=== PATIENT | female | born 1965 | race Caucasian/White ===

== ENCOUNTER → 2016-12-13 | Outpatient (CLI) | payer OTHER ==
[~2016-12-13] MED LIST: ALBU18002 INH
[2016-12-17 04:24] LABS: CHLAMYDIA TRACH RNA*** NOT DETECTED (NOT DETECTED); GC (NEIS GONORRHOEAE)RNA** NOT DETECTED (NOT DETECTED)
== END | disposition home or self-care (01) ==
LOC: C.LABSPEC 13:31
PROVIDERS: ATTEND Physician Assistant
DX: L29.8 Other pruritus (principal); Z11.3 Encounter for screening for infections with a predominantly sexual mode of transmission

== ENCOUNTER → 2017-03-07 | Outpatient (CLI) | payer OTHER ==
[2017-03-07 14:48] LABS: BASO % 0.5 %; BASO ABS # 0.05 K/uL (0-0.2); COMPLETE YES; EOS % 5.1 %; HEMATOCRIT 42.4 % (37-47); IG% 0.1 %; LYMPH % 17.2 %; LYMPH ABS # 1.57 K/uL (1.2-3.4); MEAN PLATELET VOLUME 11.7 fL (7.4-10.4); MONO % 7.7 %; NEUT % 69.4 %; PLATELET COUNT 207 K/uL (130-400); RED BLOOD COUNT 4.82 M/uL (4.2-5.4); WHITE BLOOD COUNT 9.15 K/uL (4.8-10.8)
== END | disposition home or self-care (01) ==
LOC: C.LAB1850 13:29
PROVIDERS: ATTEND Internal Medicine
DX: D72.819 Decreased white blood cell count, unspecified (principal)

== ENCOUNTER → 2017-07-23 | Outpatient (CLI) | payer OTHER | END | disposition home or self-care (01) | LOC: C.LABSPEC 13:27 | PROVIDERS: ATTEND Obstetrics & Gynecology | DX: N76.0 Acute vaginitis (principal) ==

== ENCOUNTER → 2017-10-31 | Outpatient (CLI) | payer OTHER ==
[2017-11-04 14:33] LABS: HERPES SIMPLEX VIRUS CULT NOT ISOLATED (NOT ISOLATED)
== END | disposition home or self-care (01) ==
LOC: C.LABSPEC 17:36
PROVIDERS: ATTEND Physician Assistant
DX: R35.0 Frequency of micturition (principal); N94.9 Unspecified condition associated with female genital organs and menstrual cycle

== ENCOUNTER → 2017-12-05 | Outpatient (CLI) | payer OTHER | END | disposition home or self-care (01) | LOC: C.LABSPEC 17:42 | PROVIDERS: ATTEND Physician Assistant | DX: N89.8 Other specified noninflammatory disorders of vagina (principal) ==

== ENCOUNTER → 2017-12-12 | Outpatient (CLI) | payer OTHER ==
[2017-12-12 09:35] LABS: BASO ABS # 0.06 K/uL (0-0.2); HEMATOCRIT 43.2 % (37-47); HEMOGLOBIN 14.4 g/dL (12.0-16.0); IG# 0.01 K/uL (0.00-0.02); LYMPH % 20.1 %; MEAN CELL VOLUME 86.7 fL (80-100); MEAN CORPUSCULAR HEMOGLOBIN 28.9 pg (25-34); MEAN CORPUSCULAR HGB CONC 33.3 g/dl (32-36); MEAN PLATELET VOLUME 11.1 fL (7.4-10.4); MONO % 7.2 %; MONO ABS # 0.43 K/uL (0.11-0.59); NEUT % 66.5 %; NEUT ABS # 3.96 K/uL (1.4-6.5); PLATELET COUNT 218 K/uL (130-400); RED CELL DISTRIBUTION WIDTH CV 13.9 % (11.5-14.5); WHITE BLOOD COUNT 5.96 K/uL (4.8-10.8)
[2017-12-12 10:09] LABS: ALBUMIN 3.9 gm/dl (3.4-5.0); ALT/SGPT 24 U/L (12-78); AST/SGOT 17 U/L (15-37); BLOOD UREA NITROGEN 15 mg/dl (7-18); CALCIUM 8.8 mg/dl (8.5-10.1); CARBON DIOXIDE 28 mmol/L (21-32); CHOLESTEROL 152 mg/dl (0-200); CREATININE 0.93 mg/dl (0.60-1.20); GLUCOSE 84 mg/dl (70-99); POTASSIUM 4.4 mmol/L (3.5-5.1); SODIUM 138 mmol/L (136-145)
[2017-12-12 10:18] LABS: ALKALINE PHOSPHATASE 96 U/L (45-117); LDL CHOLESTEROL CALCULATED 53 mg/dl; TOTAL PROTEIN 7.7 gm/dl (6.4-8.2)
[2017-12-15 13:46] LABS: QUANTIF MITOGEN-NIL 8.59 IU/ML; QUANTIFERON NEGATIVE (NEGATIVE); QUANTIFERON NIL 0.17 IU/ML
[2017-12-15 15:07] LABS: ANA SCREEN TC 249X POSITIVE (NEGATIVE); ANTI-SS-A <1.0 NEG AI (<1.0 NEG); ANTI-SS-B <1.0 NEG AI (<1.0 NEG); ANTICARDIOLIPID AB IGA <11 APL (< = 11); COMPLEMENT C3 TC 44859W 105 MG/DL (90-180); COMPLEMENT C4 TC 44982E 26 MG/DL (16-47); MICROSOMAL AB 94 IU/ML (<9)
== END | disposition home or self-care (01) ==
LOC: C.LAB1850 08:28
PROVIDERS: ATTEND Internal Medicine
DX: K62.89 Other specified diseases of anus and rectum (principal); R51 Headache; Z13.220 Encounter for screening for lipoid disorders; F41.9 Anxiety disorder, unspecified; R76.8 Other specified abnormal immunological findings in serum; H20.9 Unspecified iridocyclitis

== ENCOUNTER → 2018-03-06 | Day surgery (SDC) | payer OTHER ==
[2018-02-04 10:27] VITALS: Ht 162.6 cm; Wt 77.3 kg
[~2018-03-06] VITALS: Ht 162.6 cm; Wt 77.3 kg
[~2018-03-06] MED LIST changes: +ASTN; +EST1 PO; +FEXO1TAB49 PO; +FLUO0.0566 TOP; +FLUT50SP45 NAE; +LEVO1IUD2 IU; +LIDOCAINE HCL 2% 2 ML VIAL (20MG/ML) ONE; +MONT1TAB5 PO; +PROB1TAB16 PO; +PROPOFOL IV EMULSION 10 MG/ML 20 ML VIAL ONE; +SODIUM CHLORIDE 0.9% 500ML 500 ML IV ONE; +TOBRSUS OPB; +[UNRECOGNIZED DRUG - CODE] PO
--- NOTE | 2018-03-06 11:23 | Endo History and Physical ---
History & Physical Date of Service: Mar 06, 2018. Chief Complaint: H. pylori infection Referring Physician: Dr. Villarreal History of Present Illness 53 yo CF who presents for EGD secondary to H. pylori infection Past Surgical History Hx Cardiac Surgery: No Hx Internal Defibrillator: No Hx Pacemaker: No Hx Abdominal Surgery: No Hx of Implantable Prosthesis: No Hx Post-Op Nausea and Vomiting: No Hx Cancer Surgery: No Hx Thoracic Surgery: No Hx Orthopedic: No Hx Urinary Tract Surgery: No Family History None Social History Smoking Status: Never Smoker Hx Substance Use: No Hx Alcohol Use: Yes (OCCASSIONALLY WINE) Allergies Uncoded Allergies: BRONZE (Allergy, Unknown, ITCHING, 02/04/18) Current Medications Reported Home Medications Medications Dose Route/Sig Max Daily Dose Days Date Category Fluocinonide 0.05 % Lindsay 1 Appln TOP DAILY 02/04/18 Reported Tobradex 0.3% Oph (Tobramycin/Dexamethasone) Susp 2 Drops OPB QID PRN 02/04/18 Reported Montelukast Sodium 10 Mg Tab 1 Tab PO HS 02/04/18 Reported Mirena (Levonorgestrel (Iud)) 20 Mcg/24 Hr Iud IU DIRECTED 02/04/18 Reported Probiotic (Probiotic Product) 1 Tab Tab 1 Tab PO DAILY 02/04/18 Reported Allergy Nasal [place] 24 Ho (Fluticasone Propionate (Nasal)) 50 Mcg/Act Spr 2 Sprays JOHNNY HS 02/04/18 Reported Edwina Allergy (Fexofenadine Hcl) 180 Mg Tab 1 Tab PO DAILY 02/04/18 Reported Estradiol 1 Mg Tab 1 Tab PO DAILY 02/04/18 Reported Astelin Nasal [place] (Azelastine Hcl) 200 Sprays/30 Ml [place] 2 Sprays NA DAILY 02/04/18 Reported Heliocare (Polypodium Leucotomos) 240 Mg Cap 1 Cap PO DAILY 02/04/18 Reported Proair Respiclick (Albuterol Sulfate) 108 Mcg/Act Aer 1-2 Puff INH Q4H PRN 06/18/16 Reported Vital Signs Weight (Kilograms): 77.27 Height (Feet): 5 Height (Inches): 4 Physical Exam General Appearance: WD/WN, no apparent distress Respiratory/Chest: Auscultation: breath sounds normal Cardiovascular: Heart Auscultation: RRR Abdomen: Bowel Sounds: normal Inspection & Palpation: soft, non-distended, no tenderness, guarding & rebound Assessment and Plan Assessment: 53 yo CF who presents for EGD secondary to H. pylori infection Plan: Proceed with EGD.
--- NOTE | 2018-03-06 12:37 | GI REPORT ---
Patient Name: Lorelei Shaw Procedure Date: 03/06/2018 11:55 AM Date of : 1965 Admit Type: Outpatient Age: 53 Gender: Female Attending MD: Ben Bhatia DO Procedure: Upper GI endoscopy Providers: Ben Bhatia DO Referring MD: Marlen Lezama Indications: Helicobacter pylori Medicines: Monitored Anesthesia Care Complications: No immediate complications. Estimated Blood Loss: Estimated blood loss: none. Procedure: Pre-Anesthesia Assessment: - Prior to the procedure, a History and Physical was performed, and patient medications and allergies were reviewed. The patient's tolerance of previous anesthesia was also reviewed. The risks and benefits of the procedure and the sedation options and risks were discussed with the patient. All questions were answered, and informed consent was obtained. Prior Anticoagulants: The patient has taken no previous anticoagulant or antiplatelet agents. ASA Grade Assessment: II - A patient with mild systemic disease. After reviewing the risks and benefits, the patient was deemed in satisfactory condition to undergo the procedure. After obtaining informed consent, the endoscope was passed under direct vision. Throughout the procedure, the patient's blood pressure, pulse, and oxygen saturations were monitored continuously. The scope was introduced through the mouth, and advanced to the second part of duodenum. The upper GI endoscopy was accomplished without difficulty. The patient tolerated the procedure well. Findings: The esophagus was normal. The entire examined stomach was normal. Biopsies were taken with a cold forceps for Helicobacter pylori testing. The examined duodenum was normal. Impression: - Normal esophagus. - Normal stomach. Biopsied. - Normal examined duodenum. Recommendation: - Resume previous diet. - Continue present medications. - Await pathology results. - Return to primary care physician as previously scheduled. Ben Bhatia DO 03/06/2018 12:37:29 PM This report has been signed electronically. Note Initiated On: 03/06/2018 11:55 AM Number of Addenda: 0 I attest to the content of the Intraoperative Record and orders documented therein, exceptions below {[id number]}
[2018-03-06 13:02] VITALS: BP 116/82; PULSE 53; O2SAT 98
--- NOTE | 2018-03-06 13:21 | Discharge Instructions ---
Endoscopy Patient Instructions Date / Procedure(s) Performed Mar 06, 2018. EGD Allergy Information Uncoded Allergies: BRONZE (Allergy, Unknown, ITCHING, 02/04/18) Discharge Date / Findings Mar 06, 2018. Gastric antrum biopsies Medication Instructions OK to resume all medications today as prescribed Reported Home Medications Medications Dose Route/Sig Max Daily Dose Days Date Category Fluocinonide 0.05 % Lindsay 1 Appln TOP DAILY 02/04/18 Reported Tobradex 0.3% Oph (Tobramycin/Dexamethasone) Susp 2 Drops OPB QID PRN 02/04/18 Reported Montelukast Sodium 10 Mg Tab 1 Tab PO HS 02/04/18 Reported Mirena (Levonorgestrel (Iud)) 20 Mcg/24 Hr Iud IU DIRECTED 02/04/18 Reported Probiotic (Probiotic Product) 1 Tab Tab 1 Tab PO DAILY 02/04/18 Reported Allergy Nasal [place] 24 Ho (Fluticasone Propionate (Nasal)) 50 Mcg/Act Spr 2 Sprays JOHNNY HS 02/04/18 Reported Edwina Allergy (Fexofenadine Hcl) 180 Mg Tab 1 Tab PO DAILY 02/04/18 Reported Estradiol 1 Mg Tab 1 Tab PO DAILY 02/04/18 Reported Astelin Nasal [place] (Azelastine Hcl) 200 Sprays/30 Ml [place] 2 Sprays NA DAILY 02/04/18 Reported Heliocare (Polypodium Leucotomos) 240 Mg Cap 1 Cap PO DAILY 02/04/18 Reported Proair Respiclick (Albuterol Sulfate) 108 Mcg/Act Aer 1-2 Puff INH Q4H PRN 06/18/16 Reported Provider Instructions Activity Restrictions - No exercising or heavy lifting for 24 hours. - Do not drink alcohol the day of the procedure. - Do not drive a car or operate machinery until the day after the procedure. - Do not make any important decisions or sign important papers in 24 hours after the procedure. Following Day: - Return to full activity which may include returning to work/school. Diet Start your diet with liquids and light foods (jello, soup, juice, toast). Then eat your usual diet if not nauseated. Treatment For Common After Affects For mild abdominal pain, bloating, or excessive gas: - Rest - Eat lightly - Lie on right side Follow-Up Information Follow-up with Phil as scheduled Anesthesia Information What You Should Know You have had a procedure that required some medicine to reduce anxiety and discomfort. This treatment is called moderate sedation. After receiving the treatment, you may be sleepy, but you will be able to breathe on your own. The effects of the treatment may last for several hours. Follow these instructions along with Activity/Diet recommendations noted above: * Do NOT do anything where dizziness or clumsiness would be dangerous. * Rest quietly at home today, then you can be up and about tomorrow. * Have a responsible person stay with you the rest of today. * You may have had an I.V. today. If so, you may take the dressing off later today. Recommendations Call your doctor if: * Trouble breathing * Continuous vomiting for more than 24 hours * Temperature above 101 degrees * Severe abdominal pain or bloating * Pain not relieved by pain medicine ordered * There is increased drainage or redness from any incision * A large amount of rectal bleeding greater than 2-3 tablespoons. (If you had a polyp/s removed or have hemorrhoids, a small amount of blood - from the rectum is to be expected.) * You have any unanswered questions or concerns. IN THE EVENT OF A SERIOUS EMERGENCY, GO TO THE NEAREST EMERGENCY ROOM Your discharge instructions were prepared by provider Ben Bhatia. Patient Instructions Signature Page Lorelei Shaw Patient (or Guardian) Signature/Date: I have read and understand the instructions given to me by my caregivers. Caregiver/RN/Doctor Signature/Date: The above-named patient and/or guardian has received patient instructions on this date. + Original Patient Signature Page (only) stays with chart. Please make copy for patient.
--- NOTE | 2018-03-06 13:39 | Anesthesiology Progress Note ---
Anesthesia Post Op Note Date & Time Mar 06, 2018 at 13:39 Vital Signs Pain Intensity: 0 Vital Signs Past 12 Hours Date Time Temp Pulse Resp B/P (MAP) Pulse Ox O2 Delivery O2 Flow Rate FiO2 03/06/18 13:02 53 18 116/82 (93) 98 Room Air 03/06/18 12:47 61 18 122/76 (91) 98 Room Air 03/06/18 12:32 66 16 105/68 (80) 96 Room Air 03/06/18 11:36 36.6 59 16 111/66 (81) 97 Room Air Notes Mental Status: alert / awake / arousable, participated in evaluation Pt Amnestic to Procedure: Yes Nausea / Vomiting: adequately controlled Pain: adequately controlled Airway Patency, RR, SpO2: stable & adequate BP & HR: stable & adequate Hydration State: stable & adequate Anesthetic Complications: no major complications apparent
== END | disposition home or self-care (01) ==
LOC: C.GI 11:08
PROVIDERS: ATTEND Internal Medicine
DX: A04.8 Other specified bacterial intestinal infections (principal); K29.50 Unspecified chronic gastritis without bleeding; J45.909 Unspecified asthma, uncomplicated; F32.9 Major depressive disorder, single episode, unspecified; Z79.899 Other long term (current) drug therapy; F41.9 Anxiety disorder, unspecified; K21.9 Gastro-esophageal reflux disease without esophagitis